=== PATIENT | male | born 1995 | race Caucasian/White ===

== ENCOUNTER 2024-03-03 22:11 | Emergency (ER) | payer OTHER, SELFPAY ==
[2024-03-03 22:33] VITALS: BP 138/70
--- NOTE | 2024-03-03 22:43 | EDRN ---
Pt changed into paper scrubs and slipper socks without issue. Pt removed all belongings from his bag and folded all his clothing and repacked them. Pt given 2 clothing bags for additional items. Pt had a long necklace with a large cross on it
that he was asked to relinquish for his safety but pt repeatedly refused to do so offering different excuses each time. Medic tried to speak with pt as did this RN. Pt crouched down in corner of room and would not relinquish necklace. Security to
room and pt agreed to give security sales manager his necklace to lock up. Pt handed it to security. Pt sat in corner for a little bit, declined blanket/sheet. After few minutes, pt came to door and asked for tissues then curled up on stretcher. Pt
continues to decline sheet/blanket. 1:1 with EDT
[2024-03-03 22:50] VITALS: BMI 22.1
--- NOTE | 2024-03-04 01:37 | ED.GENMED ---
History of Present Illness
General
Chief Complaint: Crisis Evaluation
Source: patient
Exam Limitations: none
Time Seen by Provider: 03/03/24 22:34
Nursing documentation reviewed up to this point in time: agreed with
History of Present Illness
History of Present Illness:
Patient is a 28-year-old male from a local inpatient mental health facility where he was 1011 after supposedly taking 800 mg of Seroquel at week ago and tonight got into an argument with the person who is his one-on-one and through both cereal to
the ground. Patient states that he had been bickering for the past few days. Patient denies any homicidal or suicidal thoughts. Patient has been there 8 days. Before that the patient was in an IOP at [facility] for substance abuse secondary to
marijuana as well as dual diagnosis. Patient at this point is conversant
Past History
Past History
ED Past Medical History: Psychiatric (Bipolar, ADHD)
Social History
Drug: Marijuana
Review of Systems
Review of Systems
All Other Systems: ROS reviewed and negative except as documented in HPI and ROS
Constitutional: Reports no symptoms
EENT: Reports no symptoms
Cardiac: Reports no symptoms
ABD/GI: Reports no symptoms
: Reports no symptoms
Musculoskeletal: Reports no symptoms
Skin: Reports no symptoms
Neurological: Reports no symptoms
Psychiatric: Reports anxiety; Denies depression, suicidal or hallucinations
Phy Exam
Physical Exam
Physical Exam:
Physical Exam
General: No apparent distress, alert and appropriate, well nourished, well hydrated
HENT: Normocephalic, supple with no lymphadenopathy, no thyromegaly
Eyes: Clear sclera, conjuctiva without injection
Lungs: No respiratory distress, no stridor
Neuro: Alert and oriented x 3, CN II - XII intact, no motor focality, no cerebellar dysfunction
Skin: Well-healed wound in the perineum
Psychiatric: well kept. interactive and cooperative
Extremities: No edema, cyanosis
Course
Orders/Labs/Results
Orders:
Orders
03/03/24 22:30
1:1 Observation - Suicide/ Violent Behavior As Directed
03/03/24 23:13
Crisis Consult Urgent
Reason for Consult: hx suicidal ideation; reportedly threw a cereal bowl on ground
Vital Signs
Initial and Last Documented VS:
Initial Vital Signs
Temp Pulse Resp BP Pulse Ox
98.9 F 89 16 138/70 100
03/03/24 22:33 03/03/24 22:33 03/03/24 22:33 03/03/24 22:33 03/03/24 22:33
Last Documented Vital Signs
Temp Pulse Resp BP Pulse Ox
98.9 F 89 16 138/70 100
03/03/24 22:33 03/03/24 22:33 03/03/24 22:33 03/03/24 22:33 03/03/24 22:33
*Critical Care Note
Total Time (30-74mins, 75-104mins- exclusive of procedures): Not Applicable
Update Note
Update Note:
The treating facility refused to take the patient back. Patient is not homicidal or suicidal. Patient seen by crisis and will be discharged.
ED Attending Note
-
Portions of this chart may have been created with voice recognition software.� Occasional wrong word or��sound alike� substitutions may have occurred due to the inherent limitations of voice recognition software.
Discharge Plan
Departure
Patient Disposition: Home (Routine Discharge)
Date of Disposition: 03/04/24
Time of Disposition: 01:42
Patient with high blood pressure during this ER visit?: No
Condition: Good
Covid-19: Not Applicable
Discharge Problem:
Anger reaction
Instructions: Intermittent Explosive Disorder, Substance Abuse
Prescriptions:
No Action
clonidine HCl 0.1 mg Tablet
0.1 mg PO HSPRN PRN (Reason: anxiety)
divalproex [Depakote] 500 mg Tablet,Delayed Release (Dr/Ec)
500 mg PO BID
quetiapine [Seroquel] 100 mg Tablet
100 mg PO HS
Qelbree 200 mg Capsule,Extended Release 24hr
200 mg PO DAILY
Referrals:
NONE,* [Family Provider] -
Activity Restrictions/Additional Instructions:
Take your medicine as prescribed and follow-up with your family doctor in 1 to 2 days.
Interventions
Interventions:
*Risk Screen - Suicide Last Done: 03/03/24 22:19
*General Assessment Last Done: 03/03/24 22:19
*Neglect/Abuse Screening Last Done: 03/03/24 22:19
*ED COVID-19 Vaccine History Last Done: 03/03/24 22:19
ED-Psychological Assessment Last Done: 03/03/24 22:55
Discharge Date and Time
Print Language: MOROCCAN
--- NOTE | 2024-03-04 01:54 | EDRN ---
Dr Paul reports facility in [place] will not take pt back and pt cannot be placed inpatient. Pt cleared medically and by crisis. Pt says he is going to a hotel and will take a train into [place]. Pt says there are a lot of options
for rehab for him in [place] and that he knows someone who may be able to get him into one. Pt also said he can call his parents and possibly stay with them for the holiday and then go to a rehab. EDT repeating pt's VS and security bringing pt's
belongings to him.
[2024-03-04 01:57] VITALS: BP 126/91
== END 2024-03-04 02:09 | disposition home or self-care (01) ==
LOC: EMR 22:11
PROVIDERS: EMERGENCY PHYSICIAN Emergency Medicine
DX: R45.4 Irritability and anger (principal); F31.9 Bipolar disorder, unspecified; F90.9 Attention-deficit hyperactivity disorder, unspecified type
CPT/HCPCS: 99282

== ENCOUNTER 2024-03-04 07:57 | Emergency (ER) | payer OTHER, SELFPAY ==
[2024-03-04 07:58] VITALS: BP 121/89
[2024-03-04 09:14] VITALS: BMI 22.6
[2024-03-04 09:25] LABS: % Basophils 0.3 % (0-2); % Eosinophils 0.4 % (0-6); % Immature Granulocytes 0.2 % (0-0.5); % Lymphocytes 19.2 % (20.5-51.1); % Monocytes 4.5 % (1.7-9.3); % Neutrophils 75.4 % (42.2-75.2); Absolute Lymphocytes 1.8 10^3/uL (1.2-3.4); Absolute Monocytes 0.4 10^3/uL (0.1-0.6); Hematocrit 42.9 % (39.0-52.0); Hemoglobin 15.1 g/dL (13.0-18.0); Mean Corp Hgb Conc. 35.2 g/dL (33.0-37.0); Mean Corpuscular Hgb 32.2 pg (27.0-31.0); Mean Corpuscular Volume 91.5 fL (80.0-94.0); Nucleated Red Blood Cells % 0 % (-); Platelet Count 190 10^3/uL (130-400); Red Blood Cell Count 4.69 10^6/uL (4.70-6.10); White Blood Cell Count 9.3 10^3/uL (4.8-10.8)
[2024-03-04 09:40] LABS: Alcohol 146 mg/dl; Blood Urea Nitrogen 13 mg/dl (9-20); Calcium 10.3 mg/dl (8.4-10.2); Carbon Dioxide 27 mmol/L (22-30); Chloride 101 mmol/L (98-107); Estimated Creatinine Clearance 118 ml/min; Glucose 130 mg/dl (70-99); Sodium 141 mmol/L (135-145); eGFR > 60.00
[2024-03-04 09:47] LABS: Amphetamines Negative (Negative); Barbiturates Negative (Negative); Benzodiazepines Negative (Negative); Buprenorphine Negative (Negative); Cocaine Negative (Negative); Marijuana Positive (Negative); Methadone Negative (Negative); Methamphetamines Negative (Negative); Opiates Negative (Negative); Phencyclidine Negative (Negative); Tricyclic Antidepressants Negative (Negative)
[2024-03-04] MEDS: ZOFRAN ODT (ORALLY DISINTEGRATING) 4 MG PO ×2 (10:35→18:36)
--- NOTE | 2024-03-04 10:45 | EDRN ---
Patient sitting on bathroom floor with c/o nausea. Patient medicated with Zofran 4mg ODT. Patient refusing to come to his room and to lay on stretcher. Patient stated 'I don't want to.' Explained to patient that he's going to need to be in his room
for the track service worker to talk to him. Patient sated 'I am staying here. I don't want to go back in the room.' Explained to patient that it's not sanitary to be sitting on the bathroom floor. Patient stated 'I am staying here. I am sorry that I have
to be here.' Told patient that he's in the right place in order to get help. Fidelia stated that he does not have thoughts of killing himself but feels depressed since he got kicked out of rehab yesterday. When asked why he got kicked out patient
stated that 'I was verbally abusive to the staff but they were verbally abusive to me.' When asked what he meant by that patient stated 'They were mean to me when they told me that I could not eat my cereal in the kitchen and refused to go to the
dining room but I wanted to eat it in the kitchen.' Patient stated 'No. It was their policy that we were not allowed to eat in the kitchen' when asked if he was allowed to eat there.
[2024-03-04] MEDS: TYLENOL 1000 MG PO (15:11)
--- NOTE | 2024-03-04 15:19 | PHANOTE ---
med rec note- called [facility] [phone] behavioral health, unable to get someone one the phone to get medication list on what patient was getting there.
[2024-03-04] MEDS: ATIVAN 1 MG PO (18:36)
[2024-03-04 18:45] VITALS: BP 109/76
[2024-03-04 20:33] VITALS: BP 111/75
[2024-03-04 21:30] VITALS: BP 127/78
== END 2024-03-04 21:30 ==
LOC: EMR 07:57
PROVIDERS: EMERGENCY PHYSICIAN Emergency Medicine
DX: R45.851 Suicidal ideations (principal)
CPT/HCPCS: 80048; 80306; 82077; 85025